=== PATIENT | male | born 1960 | race African-American/Black ===

== ENCOUNTER 2021-12-01 06:08 | Day surgery (SDC) | payer OTHER ==
[2021-11-28 13:03] LABS: COVID AG,FIA SOURCE NASOPHARYNGEAL
[~2021-12-01] VITALS: Ht 181.6 cm; Wt 72.3 kg
[~2021-12-01 06:08] MED LIST: ALBU8HFA IH; ATOR40TA28 PO; CHOL25TA4 PO; FAMO20 PO; FLUT16H NASAL; MONT-35 PO; PRED-729 PO; TIOT185 IH
[2021-12-01] MEDS ORDERED: SODIUM CHLORIDE 0.9% 1,000 ML IV ONE (06:30)
[2021-12-01] MEDS ORDERED: SODIUM CHLORIDE 0.9% 1,000 ML ONE (06:35)
[2021-12-01 07:36] LABS: GLUCOMETER DEV NAME(LOC) SDS.; GLUCOSE,POINT OF CARE 103 MG/DL (70-110)
[2021-12-01] MEDS ORDERED: MIDAZOLAM HCL 5 MG/ML VIAL ONE (08:21)
[2021-12-01] MEDS ORDERED: FentaNYL CITRATE PF 100 MCG/2 ML VIAL ONE (08:21)
[2021-12-01] MEDS ORDERED: SODIUM CHLORIDE 0.9% 10 ML ONE (08:26)
[2021-12-01] MEDS ORDERED: MethylPREDNISolone SOD SUCC 125 MG/2 ML VIAL ONE ×2 (08:48→09:30)
[2021-12-01] MEDS ORDERED: MethylPREDNISolone SOD SUCC 125 MG/2 ML VIAL IVP ONE (09:30)
[2021-12-01] MEDS ORDERED: ALBUTEROL SULFATE 2.5 MG/0.5 ML NEB SOLUTION NEB ONE (17:56)
[2021-12-01] MEDS ORDERED: LIDOCAINE 4% 50 ML SOLUTION ONE (17:56)
[2021-12-01] MEDS ORDERED: BENZOCAINE 20% 50 MCG/SPRAY 57 GM ONE (17:56)
[2021-12-01] MEDS ORDERED: LIDOCAINE 2% 11 ML JELLY ONE (17:56)
[2021-12-01] MEDS ORDERED: OXYGEN THERAPY IH SCH (20:00)
== END 2021-12-01 11:35 | disposition home or self-care (01) ==
LOC: SURGERY 06:08
PROVIDERS: ATTEND Internal Medicine Critical Care Medicine
DX: J38.4 Edema of larynx (principal); B37.0 Candidal stomatitis; Z79.899 Other long term (current) drug therapy; J44.9 Chronic obstructive pulmonary disease, unspecified; Z87.01 Personal history of pneumonia (recurrent); Z98.890 Other specified postprocedural states
CPT/HCPCS: 87426; 31623; 88112; 82962; 87206; 87101; 87220; 87070; 88305; 88312; 31624; 71045; 87015; C9803; J3010; J2930; J2250; Q9967; J7030; J7613; Z7610

== ENCOUNTER 2023-03-01 05:56 | Day surgery (SDC) | payer MEDICARE, OTHER ==
[~2023-03-01] VITALS: Ht 181.6 cm; Wt 68.2 kg
[~2023-03-01 05:56] MED LIST changes: +ALBU18HF12 IH; -ALBU8HFA IH; -FLUT16H NASAL; +FLUT16SP NASAL
[2023-03-01] MEDS ORDERED: LIDOCAINE 4% 50 ML SOLUTION TP ONE (05:57)
[2023-03-01] MEDS ORDERED: ALBUTEROL SULFATE 2.5 MG/0.5 ML NEB SOLUTION NEB ONE (05:57)
[2023-03-01] MEDS ORDERED: BENZOCAINE 20% 50 MCG/SPRAY 57 GM TP ONE (05:57)
[2023-03-01] MEDS ORDERED: LIDOCAINE 2% 11 ML JELLY TP ONE (05:57)
[2023-03-01] MEDS ORDERED: SODIUM CHLORIDE 0.9% 1,000 ML IV ONE (07:00)
[2023-03-01] MEDS ORDERED: SODIUM CHLORIDE 0.9% 1,000 ML ONE (07:25)
[2023-03-01] MEDS ORDERED: MIDAZOLAM HCL 2 MG/2 ML VIAL ONE (07:51)
[2023-03-01] MEDS ORDERED: FentaNYL CITRATE PF 100 MCG/2 ML VIAL ONE (07:52)
[2023-03-01] MEDS ORDERED: MethylPREDNISolone SOD SUCC 125 MG/2 ML VIAL ONE (08:56)
[2023-03-01 09:00] VITALS: PULSE 69; RESP 16; O2SAT 100
[2023-03-01] MEDS ORDERED: MethylPREDNISolone SOD SUCC 125 MG/2 ML VIAL IVP ONE (09:00)
[2023-03-01] MEDS ORDERED: HEPARIN SODIUM 1000 UNITS/NS 1,000 ML IARTER ONE (10:30)
[2023-03-01] MEDS ORDERED: IOHEXOL 300 MG/ML 100 ML VIAL IARTER ONE (10:30)
[2023-03-01] MEDS ORDERED: LIDOCAINE 1% 30 ML/SOD BICARB 8.4% 4 ML SQ ONE (10:30)
[2023-03-01] MEDS ORDERED: MIDAZOLAM HCL 2 MG/2 ML VIAL IVP ONE (10:30)
[2023-03-01] MEDS ORDERED: FentaNYL CITRATE PF 100 MCG/2 ML VIAL IVP ONE (10:30)
== END 2023-03-01 11:00 | disposition home or self-care (01) ==
LOC: SURGERY 05:56
PROVIDERS: ATTEND Internal Medicine Critical Care Medicine
DX: J38.4 Edema of larynx (principal); B37.0 Candidal stomatitis; E78.00 Pure hypercholesterolemia, unspecified; M19.09 Primary osteoarthritis, other specified site; Z98.890 Other specified postprocedural states; Z79.899 Other long term (current) drug therapy
CPT/HCPCS: 31623; 88112; 87206; 87101; 87220; 87070; 87186; 31624; 94640; 71045; 87015; J3010; J2250; J2930; Q9967; J7030; 31625; J7613; Z7610